=== PATIENT | male | born 1985 ===

== ENCOUNTER 2018-11-02 15:06 | Observation (INO) ==
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
[2018-11-02 17:09] LABS: Basophils % 0.5 %; Eosinophils # 0.1 K/mcL (0.0-0.6); Eosinophils % 1.4 %; Hematocrit 46.3 % (37.5-50.1); Hemoglobin 16.1 g/dL (12.9-16.9); Immature Granulocytes % 0.2 % (0-4); Lymphocytes % 23.6 %; Mean Corpuscular HGB Conc 34.8 g/dL (31.6-35.5); Mean Corpuscular Hemoglobin 31.9 pg (28.0-33.3); Mean Corpuscular Volume 91.7 fL (83.0-100.0); Mean Platelet Volume 9.8 fL (9.4-12.4); Monocytes # 0.3 K/mcL (0.0-1.3); Monocytes % 7.1 %; Neutrophils # 2.9 K/mcL (1.6-8.9); Platelet Count 208 K/mcL (140-400); Red Blood Count 5.05 M/mcL (4.19-5.50); Red Cell Distribution Width 11.3 % (11.5-14.5); Segmented Neutrophils % 67.2 %
[2018-11-02 17:22] LABS: Bilirubin,Urine Negative (Negative); Blood,Urine Negative (Negative); Clarity,Urine Clear (Clear); Color,Urine Yellow (Yellow); Glucose,Urine (UA) Normal (Normal); Ketones,Urine Negative (Negative); Leukocyte Esterase,Urine Negative (Negative); Nitrite,Urine Negative (Negative); Protein,Urine Negative (Neg-Trace); Specific Gravity,Urine 1.005 (1.010-1.025); Urobilinogen,Urine Normal (Normal)
[2018-11-02 17:52] LABS: BUN/Creatinine Ratio 13 (6-26); Blood Urea Nitrogen 11 mg/dL (6-20); Calcium 8.9 mg/dL (8.6-10.3); Carbon Dioxide 24 mEq/L (23-29); Chloride 105 mEq/L (98-107); Glucose 115 mg/dL (70-105); Osmolality,Calculated 288 (280-300); Sodium 139 mEq/L (136-145); eGFR For Non-African Americans > 60 (> 60)
[2018-11-02 18:21] LABS: Amphetamine Screen,Urine Negative ng/mL (Cutoff=1000); Barbiturate Screen,Urine Negative ng/mL (Cutoff=200); Benzodiazepines Screen,Urine Negative ng/mL (Cutoff=200); Cannabinoid Screen,Urine Negative ng/mL (Cutoff = 50); Cocaine Screen,Urine Negative ng/mL (Cutoff= 300); Opiate Screen,Urine Negative ng/mL (Cutoff=300); Phencyclidine Screen,Urine Negative ng/mL (Cutoff=25)
[2018-11-02] MEDS ORDERED: Naloxone 0.4 MG/ML INJ IVP PRN (20:15)
[2018-11-02 20:55] LABS: Troponin I < 0.03 ng/mL (< 0.04)
--- NOTE | 2018-11-02 21:03 | Internal Med History&Physical ---
<Avni Samson - Last Filed: 11/02/18 23:15> Date of Encounter: 11/02/18 Time of Encounter: 20:56 Internal Medicine - H&P: HPI Chief complaint: Pre-Syncope Admitted From: Home Plans for Post Hospital Care: Home History of present illness: Mr. Navarro is a 32 year old male with no significant past medical history who presents after 2 presyncopal episodes this morning. Patient states that he was getting up out of bed this morning and all of a sudden he started feeling lightheaded/dizzy, describing it like "a drunk feeling." Notes that feeling resolved after a few seconds, but occurred twice at 0600 and 0700 this morning. Notes mild confusion afterwards, but otherwise denies other symptoms. Denies loss of consciousness, head trauma, persistent headaches, fevers/chills, ear pain, URI symptoms, chest pain, shortness of breath, palpitations, abdominal pain, nausea, vomiting, diarrhea, weakness, fatigue. Patient notes that approximately 2 months ago, he was at work at his construction site, and a metal piece approximately the size of a piece of paper weighing about 30 pounds fell from 30 feet and hit him on his head. Patient was wearing hardhat at the time, but notes loss of consciousness for about 15-20 seconds. Patient awoke and was little dizzy, but otherwise was okay. Patient was evaluated at another facility, there were no deficits or injuries. Since then, patient has not had any other syncopal episode, but does note occasional headaches in the posterior aspect of his head, and did note vivid dreams of the incident for 5 or 6 days afterwards. Pt also notes that he has occasionally felt shooting pain in the lower part of his abdomen to his testicles. Notes pain comes and goes, and he is currently in no distress. Denies recent heavy lifting, recent sexual intercourse with new partner, dysuria, hematuria, urinary frequency, urinary urgency, back pain, flank pain, abdominal pain. Patient currently in no acute distress, resting comfortably at bedside. Desired to be evaluated after presyncopal episodes this morning, to make sure nothing is wrong. Currently denies lightheadedness/dizziness, headache, chest pain, dyspnea, palpitations, nausea, vomiting. On physical exam neuro, cardiac, respiratory, abdominal exams were all benign. Initial vitals in the ED: T = 98.0, HR = 98, RR = 20, BP = 142/97, O2 = 98% on room air CBC: Within normal limits BMP: Within normal limits UA: Negative U tox: Negative EKG: HR = 88, VA = 139, QRS = 99, QTC = 465; normal sinus rhythm, regular rate, normal intervals, no acute ST changes Chest x-ray: No acute process CT head without contrast: No acute intracranial abnormality CT cervical spine without contrast: No acute fracture or traumatic malalignment CT abdomen and pelvis without contrast: No acute findings; punctate nonobstructive stone in left kidney, no hydronephrosis Plan to admit patient for further workup of presyncopal episode. Past Med Surg Social Fam HX - Past Medical History Medical history: no medical history - Past Surgical History Surgical History: no surgical history - Social History Smoking Status: Current some day smoker Smokeless Tobacco Status: No Alcohol use: occasionally Drug use: none - Family History Mother History Unknown: Yes Internal Medicine - H&P: Meds Allergy/AdvReac Type Severity Reaction Status Date / Time No Known Allergies Allergy Verified 11/02/18 20:18 All Systems PM: A 10-system review of systems was performed and is negative for pertinent findings except as documented above in the HPI. - Constitutional Constitutional: no anorexia, no chills, no fatigue, no fever(s), no falls, no lethargy, no malaise, no weakness - EENT Eyes: no blurry vision, no change in vision Nose, mouth and throat: no facial pain, no nasal congestion - Cardiovascular Cardiovascular ROS IM: no chest pain, no diaphoresis, no dyspnea, no dyspnea on exertion, no irregular heart rhythm, no lightheadedness, no orthopnea, no palpitations, no syncope - Respiratory Respiratory: no cough, no dyspnea - Gastrointestinal Gastrointestinal: no abdominal pain, no constipation, no diarrhea, no loose stools, no melena, no nausea, no vomiting - Genitourinary Genitourinary ROS male: no difficulty urinating, no dysuria, no flank pain, no genital lesions, no genital pain, no hematuria, no testicular pain, no urinary frequency, no urinary urgency - Musculoskeletal Musculoskeletal ROS IM: no back pain - Integumentary Integumentary IM: no rash - Neurological Neurological ROS: no dizziness, no headache(s), no tingling, no weakness - Psychiatric Psychiatric: no anxiety, no behavioral changes, no confusion - Constitutional Vitals: Temp Pulse Resp BP Pulse Ox 98.0 F 84 19 117/90 98 11/02/18 15:51 11/02/18 18:09 11/02/18 18:09 11/02/18 18:09 11/02/18 18:09 General appearance: Present: cooperative, A&O X 3, pleasant, no acute distress, answers questions appropriately Exam: GEN: AOx3; NAD; resting comfortably in bed; Portuguese speaker who speaks limited [place] Citizen HEENT: Atraumatic, Normocephalic; no bruising; PERRLA, EOMI, mucouse membranes moist CARDIO: RRR, no murmurs, rubs, gallops RESP: CTAB, no wheezes, rales, rhonchi ABD: Soft, non-tender, non-distended, bowel sounds present; no inguinal hernia appreciated NEURO: CN 2-12 intact; no focal deficits; 5/5 strength UE/LE B/l; no cerebellar deficits EXT: No lower extremity edema b/l; no rashes or lesions; non-tender to palpation Internal Med - H&P Results - Labs CBC & Chem 7: 11/02/18 16:55 11/02/18 16:55 Labs: Short CBC 11/02/18 Range/Units 16:55 WBC 4.4 (4.3-11.1) K/mcL Hgb 16.1 (12.9-16.9) g/dL Hct 46.3 (37.5-50.1) % Plt Count 208 (140-400) K/mcL Neutrophils # 2.9 (1.6-8.9) K/mcL BMP 11/02/18 16:55 Sodium 139 Potassium 4.0 Chloride 105 Carbon Dioxide 24 BUN 11 Creatinine 0.86 Glucose 115 H Calcium 8.9 Cardiac Enzymes 11/02/18 Range/Units 16:55 Troponin I < 0.03 (< 0.04) ng/mL Urine 11/02/18 Range/Units 17:10 Urine Color Yellow (Yellow) Urine Clarity Clear (Clear) Urine pH 6.0 (5.0-8.0) pH Units Ur Specific [place] 1.005 L (1.010-1.025) Urine Protein Negative (Neg-Trace) mg/dL Urine Glucose (UA) Normal (Normal) mg/dL - EKG Data -: EKG Interpreted by Myself EKG shows normal: sinus rhythm, intervals, QRS complexes, ST-T waves Rate: normal - EKG Data Prior EKG available for review: no Interpretation IM: normal EKG - Impressions ITS Impressions Abdomen/Pelvis CT 11/02/18 15:56 IMPRESSION: 1. No acute findings. 2. Punctate nonobstructive stone in the left kidney. No hydronephrosis. D/ / Jeanette Robertson MD / Jeanette Robertson MD Interpreting Provider: Jeanette Robertson MD Cervical Spine CT 11/02/18 15:56 IMPRESSION: No acute fracture or traumatic malalignment. D/ / Dionicio Holley / Dionicio Holley Interpreting Provider: Dionicio Holley Chest X-Ray 11/02/18 15:56 IMPRESSION: No acute process. D/ / Jefe Maurice MD / Jefe Maurice MD Interpreting Provider: Jefe Maurice MD Head CT 11/02/18 15:56 IMPRESSION: No acute intracranial abnormality. D/ / Bernard Beckett MD / Bernard Beckett MD Interpreting Provider: Bernard Beckett MD - Assessment and plan (1) Pre-syncope Current Visit: Yes Status: Acute Assessment and plan: Mr. Navarro is a 32 year old male with no significant past medical history who presents after 2 presyncopal episodes this morning. Associated with lightheadedness/dizziness for 15-20 seconds after standing up from bedside; denies loss of consciousness or head trauma; denies seizure activity; denies stressors, chest pain, palpitations, headache, abdominal pain, nausea, vomiting Hx of head trauma 2 months ago; Workup was negative Initial vitals in the ED: T = 98.0, HR = 98, RR = 20, BP = 142/97, O2 = 98% on room air CBC: Within normal limits BMP: Within normal limits UA: Negative U tox: Negative EKG: HR = 88, VA = 139, QRS = 99, QTC = 465; normal sinus rhythm, regular rate, normal intervals, no acute ST changes Chest x-ray: No acute process CT head without contrast: No acute intracranial abnormality CT cervical spine without contrast: No acute fracture or traumatic malalignment PLAN: Pre-syncopal episode - likely orthostatic vs vasovagal Monitor vitals Monitor on telemetry Carotid Duplex Echo Orthostatic Vital Signs (2) Abdominal pain Current Visit: Yes Status: Acute Assessment and plan: Pt c/o suprapubic abdominal pain that comes and goes Noted as sharp pain that resolves on its own Associated with radiation to testicular region Denies dysuria, hematuria, frequency, urgency, flank pain Denies recent new sexual partner, penile discharge, new rash or lesions PE: Soft, non-tender, non-distended, bowel sounds present; no guarding or rebound; No inguinal hernia appreciated; no flank pain or CVA tenderness Initial vitals in the ED: T = 98.0, HR = 98, RR = 20, BP = 142/97, O2 = 98% on room air CBC: Within normal limits BMP: Within normal limits UA: Negative CT abdomen and pelvis without contrast: No acute findings; punctate nonobstructive stone in left kidney, no hydronephrosis PLAN: Cont to monitor for worsening symptoms Monitor vitals Qualifiers: Abdominal location: lower abdomen, unspecified Qualified Code(s): R10.30 - Lower abdominal pain, unspecified (3) DVT prophylaxis Current Visit: Yes Status: Acute Assessment and plan: Heparin SQ BID - Time Spent With Patient Total time spent is greater than 50% in coordination of care (as documented) at patient's floor/unit and/or counseling patient: less than 15 minutes <Rula Bah - Last Filed: 11/03/18 07:44> Date of Encounter: 11/02/18 Internal Medicine - H&P: HPI History of present illness: Mr. Navarro is a 32 year old male All Systems PM: A 10-system review of systems was performed and is negative for pertinent findings except as documented above in the HPI. - Constitutional Vitals: Temp Pulse Resp BP Pulse Ox 97.8 F 75 14 114/75 96 11/03/18 03:43 11/03/18 03:43 11/03/18 03:43 11/03/18 03:43 11/03/18 03:43 Internal Med - H&P Results - Labs CBC & Chem 7: 11/03/18 04:51 11/03/18 04:51 Labs: Short CBC 11/02/18 11/03/18 Range/Units 16:55 04:51 WBC 4.4 3.7 L (4.3-11.1) K/mcL Hgb 16.1 15.4 (12.9-16.9) g/dL Hct 46.3 45.0 (37.5-50.1) % Plt Count 208 196 (140-400) K/mcL Neutrophils # 2.9 (1.6-8.9) K/mcL BMP 11/02/18 11/03/18 16:55 04:51 Sodium 139 140 Potassium 4.0 4.0 Chloride 105 106 Carbon Dioxide 24 28 BUN 11 14 Creatinine 0.86 0.85 Glucose 115 H 102 Calcium 8.9 9.1 Cardiac Enzymes 11/02/18 11/03/18 Range/Units 16:55 04:51 Troponin I < 0.03 < 0.03 (< 0.04) ng/mL Liver Function 11/03/18 Range/Units 04:51 Total Bilirubin 0.7 (0.3-1.0) mg/dL AST 24 (13-39) Units/L ALT 22 (7-52) Units/L Alkaline Phosphatase 64 (34-104) Units/L Albumin 4.1 (3.5-5.7) g/dL Urine 11/02/18 Range/Units 17:10 Urine Color Yellow (Yellow) Urine Clarity Clear (Clear) Urine pH 6.0 (5.0-8.0) pH Units Ur Specific [place] 1.005 L (1.010-1.025) Urine Protein Negative (Neg-Trace) mg/dL Urine Glucose (UA) Normal (Normal) mg/dL - Impressions ITS Impressions Abdomen/Pelvis CT 11/02/18 15:56 IMPRESSION: 1. No acute findings. 2. Punctate nonobstructive stone in the left kidney. No hydronephrosis. D/ / Jeanette Robertson MD / Jeanette Robertson MD Interpreting Provider: Jeanette Robertson MD Cervical Spine CT 11/02/18 15:56 IMPRESSION: No acute fracture or traumatic malalignment. D/ / Dionicio Holley / Dionicio Holley Interpreting Provider: Dionicio Holley Chest X-Ray 11/02/18 15:56 IMPRESSION: No acute process. D/ / Jefe Maurice MD / Jefe Maurice MD Interpreting Provider: Jefe Maurice MD Head CT 11/02/18 15:56 IMPRESSION: No acute intracranial abnormality. D/ / Bernard Beckett MD / Bernard Beckett MD Interpreting Provider: Bernard Beckett MD - Time Spent With Patient Total time spent is greater than 50% in coordination of care (as documented) at patient's floor/unit and/or counseling patient: - Attending Attestation I performed a history and physical examination of the patient and discussed the case with the resident. I reviewed the resident's note and agree with the documented findings and plan of care. In short patient is a 32-year-old male with no significant prior past medical history who presented to the ED after a near syncopal episode while arising from bed. 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 Patient also complaining of right lower quadrant pain. CT of the head and neck and abdomen were unremarkable. Laboratory workup within normal limits. We will obtain orthostatics and admit patient for presyncope workup.
[2018-11-03 05:30] LABS: Hemoglobin 15.4 g/dL (12.9-16.9); Mean Corpuscular HGB Conc 34.2 g/dL (31.6-35.5); Mean Corpuscular Hemoglobin 31.2 pg (28.0-33.3); Mean Corpuscular Volume 91.3 fL (83.0-100.0); Mean Platelet Volume 9.8 fL (9.4-12.4); Platelet Count 196 K/mcL (140-400); Red Blood Count 4.93 M/mcL (4.19-5.50); Red Cell Distribution Width 11.5 % (11.5-14.5)
[2018-11-03 05:45] LABS: Alanine Aminotransferase 22 Units/L (7-52); Albumin 4.1 g/dL (3.5-5.7); Alkaline Phosphatase 64 Units/L (34-104); Aspartate Amino Transferase 24 Units/L (13-39); BUN/Creatinine Ratio 16 (6-26); Bilirubin,Total 0.7 mg/dL (0.3-1.0); Blood Urea Nitrogen 14 mg/dL (6-20); Calcium 9.1 mg/dL (8.6-10.3); Carbon Dioxide 28 mEq/L (23-29); Chloride 106 mEq/L (98-107); Globulin 2.1 g/dL (2.4-3.5); Glucose 102 mg/dL (70-105); Magnesium 2.2 mg/dL (1.6-2.6); Osmolality,Calculated 291 (280-300); Sodium 140 mEq/L (136-145); Total Protein 6.2 g/dL (6.4-8.9); eGFR For Non-African Americans > 60 (> 60)
[2018-11-03] MEDS: *HR* Heparin 5,000 UNIT/ML VIAL SQ SCH ×2 (06:19→17:52)
[2018-11-03] MEDS ORDERED: Perflutren Lipid Microsphere 1.3 ML in 0.9 % Sodium Chloride 8.7 ML IVP ONE (08:33)
--- NOTE | 2018-11-03 09:19 | Internal Med Progress Note ---
<Aleja Ny - Last Filed: 11/03/18 13:04> Hospitalist Progress Note - Encounter Date of Encounter: 11/03/18 - Exam Vitals: Temp Pulse Resp BP Pulse Ox 97.5 F L 98 15 127/79 98 11/03/18 12:24 11/03/18 12:24 11/03/18 12:24 11/03/18 12:24 11/03/18 12:24 - Assessment and Plan (1) Abdominal pain Current Visit: Yes Status: Acute (2) Pre-syncope Current Visit: Yes Status: Acute (3) DVT prophylaxis Current Visit: Yes Status: Acute - Time Spent with Patient Total time spent is greater than 50% in coordination of care (as documented) at patient's floor/unit and/or counseling patient: Internal Medicine: Result - Labs CBC & Chem 7: 11/03/18 04:51 11/03/18 04:51 Labs: Short CBC 11/02/18 11/03/18 Range/Units 16:55 04:51 WBC 4.4 3.7 L (4.3-11.1) K/mcL Hgb 16.1 15.4 (12.9-16.9) g/dL Hct 46.3 45.0 (37.5-50.1) % Plt Count 208 196 (140-400) K/mcL Neutrophils # 2.9 (1.6-8.9) K/mcL BMP 11/02/18 11/03/18 16:55 04:51 Sodium 139 140 Potassium 4.0 4.0 Chloride 105 106 Carbon Dioxide 24 28 BUN 11 14 Creatinine 0.86 0.85 Glucose 115 H 102 Calcium 8.9 9.1 Cardiac Enzymes 11/02/18 11/03/18 Range/Units 16:55 04:51 Troponin I < 0.03 < 0.03 (< 0.04) ng/mL Liver Function 11/03/18 Range/Units 04:51 Total Bilirubin 0.7 (0.3-1.0) mg/dL AST 24 (13-39) Units/L ALT 22 (7-52) Units/L Alkaline Phosphatase 64 (34-104) Units/L Albumin 4.1 (3.5-5.7) g/dL Urine 11/02/18 Range/Units 17:10 Urine Color Yellow (Yellow) Urine Clarity Clear (Clear) Urine pH 6.0 (5.0-8.0) pH Units Ur Specific [place] 1.005 L (1.010-1.025) Urine Protein Negative (Neg-Trace) mg/dL Urine Glucose (UA) Normal (Normal) mg/dL - Impressions Impressions Abdomen/Pelvis CT 11/02/18 15:56 IMPRESSION: 1. No acute findings. 2. Punctate nonobstructive stone in the left kidney. No hydronephrosis. D/ / Jeanette Robertson MD / Jeanette Robertson MD Interpreting Provider: Jeanette Robertson MD Cervical Spine CT 11/02/18 15:56 IMPRESSION: No acute fracture or traumatic malalignment. D/ / Dionicio Holley / Dionicio Holley Interpreting Provider: Dionicio Holley Chest X-Ray 11/02/18 15:56 IMPRESSION: No acute process. D/ / Jefe Maurice MD / Jefe Maurice MD Interpreting Provider: Jefe Maurice MD Head CT 11/02/18 15:56 IMPRESSION: No acute intracranial abnormality. D/ / Bernard Beckett MD / Bernard Beckett MD Interpreting Provider: Bernard Beckett MD Consult Discharge Plan - Plan Referrals: NONE,PCP [Primary Care Provider] - - Attending Attestation I examined this patient and my medical decision-making was reviewed with the Resident Physician Dr Burrell. I agree with the documented findings, disposition and treatment plan as described except to the extent set forth below. Mr Navarro is currently being observed for near syncope and left flank pain. awake, pleasant, denies any further left flank pain. No lightheaded or dizzy currently. no bojorquez, no pain, cp or palpitations. gen- alert, awake,appears stated age eyes- pupils equal round cv- reg rate and rhythm, normal s1,s2, no murmurs appreciated, no le edema lungs- ctabl, no wheezing, rhonchi or crackles abd- soft, non tender, non distended, + bs neuro- AAOx3, CN grossly intact, no focal deficits presyncope- original orthostats neg, recheck today, trops neg, neg, no metabolic disturbance to account for symptoms as of yet cont tele, cus,ekg, and echo pending flank pain, resolved- given radiation to testes check g/c urine, ua unremarkable, ct a/p unremarkable further diagnoses and treatment as noted by resident <Alexys Burrell - Last Filed: 11/03/18 16:45> Hospitalist Progress Note - Encounter Date of Encounter: 11/03/18 Time of Encounter: 09:17 - Subjective Interval History: 32-year-old male evaluated at bedside. He denies nausea, vomiting, diarrhea, fever, chills, chest pain, shortness of breath. He does report dizziness when getting up from a lying position. He denies any new problems today. - Exam Vitals: Temp Pulse Resp BP Pulse Ox 98.3 F 73 15 112/76 97 11/03/18 07:58 11/03/18 07:58 11/03/18 07:58 11/03/18 07:58 11/03/18 07:58 Exam: Gen.: alert and oriented x3, pleasant, no acute distress. CV: regular rate and rhythm, no murmurs, reps, gallops, normal S1, S2. Respiratory: clear to auscultation bilaterally, no rales, rhonchi, wheezing. Abdomen: soft, nondistended, nontender, bowel sounds present. No organomegaly. Extremities: no cyanosis or edema present. - Assessment and Plan (1) Pre-syncope Current Visit: Yes Status: Acute Assessment and Plan: 32-year-old male admitted for 2 episodes of presyncope. Of note he also had associated work related injury about 2 months ago at construction site where a piece of metal fell from 30 feet and hit him in the head. At that time, he had about 15-20 seconds of loss of consciousness. Head CT negative chest x-ray unremarkable cervical spine CT no acute abnormality orthostatic vitals negative echocardiogram showed LVEF 60%, normal LV chimp her size, wall thickness, functions. Normal RV structure and function, no significant valvular dysfunction. plan: carotid duplex pending continue telemetry start fluid bolus, will repeat orthostatic vitals if workup negative, will discharge with Holter monitor (2) Abdominal pain Current Visit: Yes Status: Acute Assessment and Plan: On admission, patient was complaining of suprapubic abdominal pain that is intermittent. Currently denies any pain. CT of the abdomen/pelvis showed no acute findings. There was not obstructive stone in the left kidney without any evidence of hydronephrosis. Plan: continue to monitor check urine gonorrhea/chlamydia (3) DVT prophylaxis Current Visit: Yes Status: Acute Assessment and Plan: Heparin SQ - Time Spent with Patient Total time spent is greater than 50% in coordination of care (as documented) at patient's floor/unit and/or counseling patient: Internal Medicine: Result - Labs CBC & Chem 7: 11/03/18 04:51 11/03/18 04:51 Labs: Short CBC 11/02/18 11/03/18 Range/Units 16:55 04:51 WBC 4.4 3.7 L (4.3-11.1) K/mcL Hgb 16.1 15.4 (12.9-16.9) g/dL Hct 46.3 45.0 (37.5-50.1) % Plt Count 208 196 (140-400) K/mcL Neutrophils # 2.9 (1.6-8.9) K/mcL BMP 11/02/18 11/03/18 16:55 04:51 Sodium 139 140 Potassium 4.0 4.0 Chloride 105 106 Carbon Dioxide 24 28 BUN 11 14 Creatinine 0.86 0.85 Glucose 115 H 102 Calcium 8.9 9.1 Cardiac Enzymes 11/02/18 11/03/18 Range/Units 16:55 04:51 Troponin I < 0.03 < 0.03 (< 0.04) ng/mL Liver Function 11/03/18 Range/Units 04:51 Total Bilirubin 0.7 (0.3-1.0) mg/dL AST 24 (13-39) Units/L ALT 22 (7-52) Units/L Alkaline Phosphatase 64 (34-104) Units/L Albumin 4.1 (3.5-5.7) g/dL Urine 11/02/18 Range/Units 17:10 Urine Color Yellow (Yellow) Urine Clarity Clear (Clear) Urine pH 6.0 (5.0-8.0) pH Units Ur Specific [place] 1.005 L (1.010-1.025) Urine Protein Negative (Neg-Trace) mg/dL Urine Glucose (UA) Normal (Normal) mg/dL - Impressions Impressions Abdomen/Pelvis CT 11/02/18 15:56 IMPRESSION: 1. No acute findings. 2. Punctate nonobstructive stone in the left kidney. No hydronephrosis. D/ / Jeanette Robertson MD / Jeanette Robertson MD Interpreting Provider: Jeanette Robertson MD Cervical Spine CT 11/02/18 15:56 IMPRESSION: No acute fracture or traumatic malalignment. D/ / Dionicio Holley / Dionicio Holley Interpreting Provider: Dionicio Holley Chest X-Ray 11/02/18 15:56 IMPRESSION: No acute process. D/ / Jefe Maurice MD / Jefe Maurice MD Interpreting Provider: Jefe Maurice MD Head CT 11/02/18 15:56 IMPRESSION: No acute intracranial abnormality. D/ / Bernard Beckett MD / Bernard Beckett MD Interpreting Provider: Bernard Beckett MD <Aleja Ny - Last Filed: 11/03/18 13:04> (1) Abdominal pain Qualifiers: Abdominal location: lower abdomen, unspecified Qualified Code(s): R10.30 - Lower abdominal pain, unspecified <Alexys Burrell - Last Filed: 11/03/18 16:45> (2) Abdominal pain Qualifiers: Abdominal location: lower abdomen, unspecified Qualified Code(s): R10.30 - Lower abdominal pain, unspecified
[2018-11-03] MEDS ORDERED: 0.9 % Sodium Chloride 1,000 ML IVC SCH (09:30)
[2018-11-03] MEDS ORDERED: 0.9 % Sodium Chloride 1,000 ML IVC ONE (13:24)
[2018-11-03 22:08] LABS: Chlamydia Trachomatis DNA Ur NOT DETECTED (Not Detect)
[2018-11-04] MEDS: *HR* Heparin 5,000 UNIT/ML VIAL SQ SCH (05:56)
[2018-11-04 07:50] VITALS: BP 121/84
--- NOTE | 2018-11-04 10:20 | Discharge Summary ---
<Alexys Burrell - Last Filed: 11/04/18 10:18> - NOTES TO OUTPATIENT PROVIDER Notes to Outpatient Provider: patient presented for symptoms of pre syncope. Echo, orthostatics, carotid duplex normal. No significant finds on tele. It is important that he gets holter monitor during outpatient followup and sees card iology to make sure no abnormal cardiac rhythm is causing his symptoms. telephone repairer was used, and the above information was explained to patient. He needs to take his records with him when he moves back to [place]. Orders not resulted at time of discharge: Pending orders 11/02/18 15:56 EKG [ECG 12 lead ECG] [ECG] Stat Date of Encounter: 11/04/18 Time of Encounter: 10:18 - Discharge Diagnosis (1) Pre-syncope Priority: Primary Status: Acute (2) Abdominal pain Priority: Secondary Status: Acute Qualifiers: Abdominal location: lower abdomen, unspecified Qualified Code(s): R10.30 - Lower abdominal pain, unspecified (3) DVT prophylaxis Priority: Secondary Status: Acute Hospital course: Mr. Navarro is a 32 year old male with significant past medical history. He arrived to the hospital on 11/02/18 with chief complaint of pre-couple episodes x2 earlier in the day. When getting up from a seated or lying position, he reported extreme dizziness, lightheadedness. Of note, about 2 months ago, patient did have an accident at work where a large piece of metal weighing about 30 pounds fell and hit him in his head, causing him to lose his for [id number] seconds. Patient was admitted to observation for further workup. Carotid duplex showed none stenotic plaque bilaterally.echocardiogram showed LVEF 60%, normal LV chimp her size, wall thickness, functions. Normal RV structure and function, no significant valvular dysfunction. Orthostatic vitals were negative. Patient was continually monitored on telemetry, and there were no acute findings. Patient was told that he needs to follow-up outpatient with his primary care provider, and needs alter monitor and cardiology follow-up as well. He received IV fluids. He states that he does not live in town and is only here from month, and plans to move to [place] afterwards. Patient was explained that he needs to bring his records with him and continue outpatient follow-up. Interventional Tech was used to explain all of this to the patient. Discharge discussed with: patient - Time Spent with Patient Total time spent providing and/or coordinating discharge services: Less than 30 minutes - Discharge Medications Home Medications: No Known Home Drugs 11/03/18 [History] Allergies/Adverse Reactions: Allergy/AdvReac Type Severity Reaction Status Date / Time No Known Allergies Allergy Verified 11/03/18 10:13 Date of admission: 11/02/18 18:50 Primary care physician: PCP NONE Discharging clinician: Alexys Burrell Anticipated date of discharge: 11/04/18 - Constitutional Vitals: Temp Pulse Resp BP Pulse Ox 98.6 F 76 16 121/84 98 11/04/18 07:49 11/04/18 07:49 11/04/18 07:49 11/04/18 07:49 11/04/18 07:49 General appearance: Present: cooperative, A&O X 3, pleasant, no acute distress, answers questions appropriately Exam: Gen.: alert and oriented x3, pleasant, no acute distress. CV: regular rate and rhythm, no murmurs, reps, gallops, normal S1, S2. Respiratory: clear to auscultation bilaterally, no rales, rhonchi, wheezing. Abdomen: soft, nondistended, nontender, bowel sounds present. No organomegaly. Extremities: no cyanosis or edema present. - Patient Status Disposition: Home, Self-Care Condition: Good Functional capacity at discharge: independent ambulation Overall status at discharge: patient is back to baseline - Discharge Instructions Instructions: Syncope (DC) Follow Up With: Aleksandr Rangel MD [Partnered Physician] - (Se bojorquez hecho talia recomendacin, la oficina lo llamar para programar talia joselyn.) Wandy Fall CNP [Advanced Practice Nurse] - (Se bojorquez hecho talia recomendacin, la oficina lo llamar para programar talia joselyn.) Additional Instructions: Brooke un seguimiento con patel proveedor de atencin primaria dentro de talia semana despus del joseph. Es importante que obtenga un monitor Holter y un seguimiento con cardiologa. traiga estos registros cuando regrese a [place] para entregarlos a chelsea mdicos. Regrese al servicio de urgencias inmediatamente si los sntomas persisten. - Diet and Activity Activity: increase activity as tolerated Diet: advance to your usual diet <Aleja Ny - Last Filed: 11/04/18 14:17> Orders not resulted at time of discharge: Pending orders 11/02/18 15:56 EKG [ECG 12 lead ECG] [ECG] Stat Date of Encounter: 11/04/18 - Discharge Diagnosis (1) Abdominal pain Status: Acute Qualifiers: Abdominal location: lower abdomen, unspecified Qualified Code(s): R10.30 - Lower abdominal pain, unspecified (2) Pre-syncope Status: Acute (3) DVT prophylaxis Status: Acute Hospital course: Mr. Navarro is a 32 year old male - Time Spent with Patient Total time spent providing and/or coordinating discharge services: Date of admission: 11/02/18 18:50 Primary care physician: PCP NONE - Constitutional Vitals: Temp Pulse Resp BP Pulse Ox 98.6 F 76 16 121/84 98 11/04/18 07:49 11/04/18 07:49 11/04/18 07:49 11/04/18 07:49 11/04/18 07:49 - Attending Attestation I examined this patient and my medical decision-making was reviewed with the Resident Physician Dr Burrell. I agree with the documented findings, disposition and treatment plan as described except to the extent set forth belo w. Mr Navarro was observed for near syncope and left flank pain. Symptoms resolved without intervention. inpt work up was unremarkable, he is being discharged to home in stable condition awake, pleasant,no pain, no cp or palpitations, feels well, happy to dc to home. gen- alert, awake,appears stated age cv- reg rate and rhythm, normal s1,s2, no murmurs appreciated lungs- ctabl, no wheezing, rhonchi or crackles abd- soft, non tender, non distended, + bs neuro- AAOx3, CN grossly intact, no focal deficits presyncope- trops neg, tele neg, no metabolic disturbance to account for symptoms, echo and cus without significant findings no symptoms since prior to admit we rec for pcp and cards fu to assess for holter monitor need, however pt lives in [place] and is only here for the month then going back -we have pre emptively requested follow up appt for him in the interim , and if he does not go to appts or is not seen prior to leaving, he has been instructed to take paperwork with him to pcp and get cards referral or holter placed there. flank pain, resolved- given radiation to testes check g/c urine and neg, ua unremarkable, ct a/p unremarkable further diagnoses and treatment as noted by resident
--- NOTE | 2018-11-05 13:23 | Electrocardiograph Report ---
[address] [address] Test Date: 2018-11-02 Pat Name: Wade Navarro Department: [id number] Room: 3B Gender: M Metal Fitter: : 1985 Requested By: Mich Serrano Order Number: [id number] Reading MD: Javy Auguste Measurements Intervals Motley Rate: 88 P: 71 PA: 139 QRS: 202 QRSD: 99 T: 58 QT: 384 QTc: 465 Interpretive Statements Sinus rhythm Electronically Signed On 11-05-2018 13:22:04 EST by Javy Auguste
== END 2018-11-04 10:59 | disposition home or self-care (01) ==
LOC: EMEROOARM 15:06 → 3BNU 15:06
PROVIDERS: ADMIT Internal Medicine; ATTEND Internal Medicine